=== PATIENT | female | born 1970 | race American Indian/Alaskan Native ===

== ENCOUNTER 2021-04-04 21:15 | Emergency (ER) | payer MEDICARE ==
[2021-04-04 21:26] VITALS: BP 169/84
--- NOTE | 2021-04-04 21:47 | Emergency Department Report ---
ED Chest Pain HPI - General Chief Complaint: Chest Pain Stated Complaint: CHEST PAIN PUI?: No Time Seen by Provider: 04/04/21 21:23 Source: patient, family Mode of arrival: Wheelchair Limitations: No Limitations - History of Present Illness Initial Comments: Chief complaint "my chest is burning." HPI: This 50-year-old female with history of peripheral vascular disease, VTE on Xarelto, congestive heart failure, CVA, hyperlipidemia who presents with chest pressure which began last night. The pain is worse when she lays flat. Worse when she lays on her left side. She has had persistent pressure feeling throughout the day burning sensation. No history of heart attack. 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 During that time she was told that she had congestive heart failure. She does not follow with wet finisher wool. Her PCP is Dr. Mario Ashley on [facility]. Patient is wheelchair-bound. Bilateral BKA. History of PVD. MD Complaint: chest pain -: Gradual, Last night (Last night) Onset: during rest Pain Location: substernal, left chest Severity: moderate Severity scale (0 -10): 7 Quality: tightness, heaviness, other (Burning) Consistency: constant Improves With: other (Sitting upright) Worsens With: other (Laying flat) Treatments Prior to Arrival: none - Related Data Allergies Allergy/AdvReac Type Severity Reaction Status Date / Time No Known Allergies Allergy Verified 04/04/21 21:26 Heart Score - HEART Score History: Slightly suspicious EKG: Normal Age: 45-65 Risk factors: > 3 risk factors or hx of atherosclerotic disease Troponin: < normal limit HEART Score: 3 - EKG Read Time Time EKG Completed: 21:30 EKG Read Time: 21:45 - Critical Actions Critical Actions: 4-6 pts:12-16.6% risk of adverse cardiac event. Should be admitted ED Review of Systems ROS: Stated complaint: CHEST PAIN Other details as noted in HPI Comment: All other systems reviewed and negative Constitutional: denies: chills, fever, malaise Respiratory: denies: cough, shortness of breath Cardiovascular: chest pain Gastrointestinal: denies: abdominal pain, nausea, vomiting ED Past Medical Hx - Past Medical History Previous Medical History?: Yes Hx Hypertension: Yes Hx Arthritis: Yes Hx Dementia: Yes - Surgical History Past Surgical History?: Yes Additional Surgical History: Bilateral AKA, - Social History Smoking Status: Current Every Day Smoker Substance Use Type: Marijuana ED Physical Exam - General Limitations: No Limitations General appearance: alert, in no apparent distress - Head Head exam: Present: atraumatic, normocephalic - Eye Eye exam: Present: normal appearance - ENT ENT exam: Present: mucous membranes moist - Neck Neck exam: Present: normal inspection, full ROM. Absent: tenderness, meningismus - Respiratory Respiratory exam: Present: normal lung sounds bilaterally. Absent: respiratory distress, wheezes, rales, rhonchi - Cardiovascular Cardiovascular Exam: Present: regular rate, normal rhythm, normal heart sounds. Absent: systolic murmur, diastolic murmur, rubs, gallop - GI/Abdominal GI/Abdominal exam: Present: soft, normal bowel sounds. Absent: distended, tenderness, guarding, rebound - Extremities Exam Extremities exam: Present: other (Bilateral BKA) - Neurological Exam Neurological exam: Present: alert, oriented X3 - Psychiatric Psychiatric exam: Present: normal affect, normal mood - Skin Skin exam: Present: warm, dry, intact, normal color. Absent: rash ED Course Vital Signs 04/04/21 21:22 Temperature 98.3 F Pulse Rate 90 Respiratory 18 Rate Blood Pressure 169/84 O2 Sat by Pulse 100 Oximetry ED Medical Decision Making - Lab Data Result diagrams: 04/04/21 22:22 04/04/21 22:22 - EKG Data -: EKG Interpreted by Me - EKG Data 04/04/21 21:47 EKG obtained 2130 EKG interpreted by me Rate 75 bpm normal sinus rhythm left axis deviation right bundle branch block positive LVH no ST elevation nonischemic T wave pattern - Radiology Data Radiology results: report reviewed Patient Name: JAYLAN SNYDER Gender: Female Date of : 1970 Referring Provider: RHIANNON FOLEY Organization: [facility] Accession Number: [id number] Requested Date: April 04, 2021 21:24 Report Status: Final Requested Procedure: 1 Procedure Description: XR chest 1V ap Modality: XR Findings Reporting MD: Ravindra Forde Dictation Time: April 04, 2021 21:09 Stonemason: Not available Financial Aid Manager Date: CHEST 1 VIEW 04/04/2021 9:53 PM INDICATION / CLINICAL INFORMATION: Chest Pain. COMPARISON: None available. FINDINGS: SUPPORT DEVICES: None. HEART / MEDIASTINUM: No significant abnormality. LUNGS / PLEURA: No significant pulmonary or pleural abnormality. No pneumothorax. ADDITIONAL FINDINGS: No significant additional findings. IMPRESSION: 1. No acute findings. Signer Name: Ravindra Forde MD Signed: 04/04/2021 9:09 PM Workstation Name: [id number] - Medical Decision Making Heart score 3, chest pain atypical for ACS. Chest pain resolved after aspirin therapy. Patient understands to follow-up with her wet finisher wool. Cardiology referral request form faxed to [facility]. Suspect esophagitis GERD. Troponin negative. Only 1 troponin required in this instance considering patient has had pain for almost 24 hours. Labs reflective of known anemia known leukopenia known CKD. Patient follow with her PCP and her wet finisher wool. Critical care attestation.: If time is entered above; I have spent that time in minutes in the direct care of this critically ill patient, excluding procedure time. ED Disposition Clinical Impression: Esophagitis, Chest pain Disposition: 01 HOME / SELF CARE / HOMELESS Is pt being admited?: No Does the pt Need Aspirin: No Condition: Stable Instructions: Esophagitis, Nonspecific Chest Pain, Adult Referrals: VENESSA LUNA MD [Staff Physician] - 2-3 Days
--- NOTE | 2021-04-04 22:14 | XRay Report ---
CHEST 1 VIEW 04/04/2021 9:53 PM INDICATION / CLINICAL INFORMATION: Chest Pain. COMPARISON: None available. FINDINGS: SUPPORT DEVICES: None. HEART / MEDIASTINUM: No significant abnormality. LUNGS / PLEURA: No significant pulmonary or pleural abnormality. No pneumothorax. ADDITIONAL FINDINGS: No significant additional findings. IMPRESSION: 1. No acute findings. Signer Name: Ravindra Forde MD Signed: 04/04/2021 10:09 PM Workstation Name: [id number]
[2021-04-04] MEDS ORDERED: ASPIRIN 325 MG TAB PO ONE (22:24)
[2021-04-04 23:13] LABS: Hematocrit 25.7 % (30.3-42.9); Hemoglobin 8.8 gm/dl (10.1-14.3); Mean Corpuscular HGB Conc 34 % (30-34); Mean Corpuscular Volume 92 fl (79-97); Platelet Count 174 K/mm3 (140-440); Red Blood Count 2.79 M/mm3 (3.65-5.03); Red Cell Distribution Width 13.6 % (13.2-15.2)
[2021-04-04 23:34] LABS: Alanine Aminotransferase 9 units/L (7-56); Albumin 3.3 g/dL (3.9-5); BUN/Creatinine Ratio 12; Blood Urea Nitrogen 23 mg/dL (7-17); Calcium 8.8 mg/dL (8.4-10.2); Hemolysis Index 5
[2021-04-05 01:18] LABS: Total Cells Counted 100
[2021-04-05 01:19] LABS: Platelet Estimate Consistent w Auto; RBC Morphology Normal
--- NOTE | 2021-04-07 18:53 | Electrocardiograph Report ---
[facility] Test Date: 2021-04-04 Test Time: 21:30:29 Pat Name: JAYLAN SNYDER Department: Room: Gender: F Rn Advanced: CRYSTAL : 1970 Requested By: RHIANNON FOLEY Order Number: [id number] Reading MD: Romeo Benson Measurements Intervals [place] Rate: 76 P: 52 WI: 173 QRS: -72 QRSD: 129 T: 84 QT: 454 QTc: 510 Interpretive Statements Sinus rhythm Right bundle branch block LVH with IVCD and secondary repol abnrm Consider old anterolateral infarct No previous ECG available for comparison Electronically Signed On 04-07-2021 18:52:57 EDT by Romeo Benson
== END 2021-04-05 00:34 | disposition home or self-care (01) ==
LOC: ED 21:15
DX: K20.90 Esophagitis, unspecified without bleeding (principal); I10 Essential (primary) hypertension; M19.90 Unspecified osteoarthritis, unspecified site; F03.90 Unspecified dementia, unspecified severity, without behavioral disturbance, psychotic disturbance, mood disturbance, and anxiety; F17.200 Nicotine dependence, unspecified, uncomplicated; F12.90 Cannabis use, unspecified, uncomplicated
CPT/HCPCS: 36415; 71045; 80053; 84484; 85007; 85025; 93005; 99284